=== PATIENT | male | born 1955 | race African-American/Black ===

== ENCOUNTER 2020-11-16 11:26 | Inpatient (IN) | payer OTHER ==
[2020-11-16 12:16] VITALS: BMI 22.1
[2020-11-16] MEDS ORDERED: MAG HYDROX/AL HYDROX/SIMETH 30 ML UNIT-DOSE CUP PO PRN (13:16)
[2020-11-16] MEDS ORDERED: ONDANSETRON *ODT* 4 MG TABLET SL PRN (13:16)
[2020-11-16] MEDS ORDERED: cloNIDine HCL 0.1 MG TABLET PO PRN (13:16)
[2020-11-16] MEDS ORDERED: ACETAMINOPHEN 325 MG TABLET (FP) PO PRN ×2 (13:16)
[2020-11-16] MEDS ORDERED: MAGNESIUM CITRATE 300 ML BOTTLE PO PRN (13:16)
[2020-11-16] MEDS ORDERED: MENTHOL/PHENOL 1 EACH UD MM PRN (13:16)
[2020-11-16] MEDS ORDERED: IBUPROFEN 400 MG TABLET (FP) PO PRN (13:16)
[2020-11-16] MEDS ORDERED: BISMUTH SUBSALICYLATE 524 MG/30 ML PO PRN (13:16)
[2020-11-16] MEDS ORDERED: clonazePAM 0.5 MG ODT TABLETS SL PRN (13:16)
[2020-11-16] MEDS ORDERED: MAGNESIUM HYDROX 2400MG/30ML ORAL SUSPENSION 30 ML CUP PO PRN (13:16)
[2020-11-16] MEDS ORDERED: methaDONE HCL 10 MG TABLET (FOR DETOX USE ONLY) PO ONE (13:30)
[2020-11-16] MEDS: PRENATAL VITAMINS W/ FOLIC ACID TABLET (FP) PO SCH (14:34)
[2020-11-16] MEDS: NICOTINE 7 MG/24 HOURS TOPICAL PATCH TD SCH (14:34)
[2020-11-16] MEDS: NICOTINE 10 MG CARTRIDGE (INHALER) IH PRN (14:34)
[2020-11-16] MEDS: hydrOXYzine PAMOATE 25 MG CAPSULE (FP) PO SCH ×3 (15:33→22:29)
[2020-11-16 16:03] LABS: HEMOGLOBIN 14.1 GM/dL (11.7-16.9); MCH 32.6 pg (25.7-33.7); MCHC 34.5 g/dl (32.0-35.9); MEAN CELL VOLUME 94.5 fl (80-96); MEAN PLT VOLUME 8.5 fl (7.5-11.1); PLATELET COUNT 260 10^3/uL (134-434); RBC 4.34 M/mm3 (4.00-5.60); RDW 13.3 % (11.9-15.9); WHITE BLOOD COUNT 4.7 K/mm3 (4.0-10.0)
[2020-11-16 16:08] LABS: CALCIUM 9.8 mg/dL (8.5-10.1)
[2020-11-16 16:09] LABS: ALBUMIN 4.8 g/dl (3.4-5.0); BLOOD UREA NITROGEN 26.6 mg/dL (7-18)
[2020-11-16 16:12] LABS: CREATININE 1.3 mg/dL (0.55-1.3)
[2020-11-16 16:14] LABS: BILIRUBIN,TOTAL 0.5 mg/dL (0.2-1)
[2020-11-16] MEDS: MELATONIN 5 MG TABLETS PO SCH (22:29)
[2020-11-16] MEDS: THIAMINE HCL 100 MG TABLET (FP) PO SCH (22:29)
[2020-11-17] MEDS: hydrOXYzine PAMOATE 25 MG CAPSULE (FP) PO SCH ×5 (06:27→22:32)
[2020-11-17] MEDS ORDERED: methaDONE HCL 10 MG TABLET (FOR DETOX USE ONLY) ONE (08:57)
[2020-11-17] MEDS: PRENATAL VITAMINS W/ FOLIC ACID TABLET (FP) PO SCH (10:14)
[2020-11-17] MEDS: METHOCARBAMOL 500 MG TABLET PO PRN (10:14)
[2020-11-17] MEDS: NICOTINE 7 MG/24 HOURS TOPICAL PATCH TD SCH (10:16)
[2020-11-17] MEDS: FLUTICASONE PROP 0.05% 16 GM NASAL SPRAY NS SCH ×2 (19:25→22:32)
[2020-11-17] MEDS: THIAMINE HCL 100 MG TABLET (FP) PO SCH (22:32)
[2020-11-17] MEDS: MELATONIN 5 MG TABLETS PO SCH (22:32)
[2020-11-18] MEDS: hydrOXYzine PAMOATE 25 MG CAPSULE (FP) PO SCH ×6 (06:31→22:37)
[2020-11-18] MEDS ORDERED: methaDONE HCL 10 MG TABLET (FOR DETOX USE ONLY) PO ONE (10:00)
[2020-11-18] MEDS: PRENATAL VITAMINS W/ FOLIC ACID TABLET (FP) PO SCH (10:09)
[2020-11-18] MEDS: METHOCARBAMOL 500 MG TABLET PO PRN ×2 (10:09→22:38)
[2020-11-18] MEDS: NICOTINE 7 MG/24 HOURS TOPICAL PATCH TD SCH (10:10)
[2020-11-18] MEDS: FLUTICASONE PROP 0.05% 16 GM NASAL SPRAY NS SCH ×2 (10:11→22:37)
[2020-11-18] MEDS: NICOTINE 10 MG CARTRIDGE (INHALER) IH PRN (21:13)
[2020-11-18] MEDS: THIAMINE HCL 100 MG TABLET (FP) PO SCH (22:36)
[2020-11-18] MEDS: MELATONIN 5 MG TABLETS PO SCH (22:37)
[2020-11-19] MEDS: hydrOXYzine PAMOATE 25 MG CAPSULE (FP) PO SCH ×5 (05:38→22:29)
[2020-11-19] MEDS ORDERED: methaDONE HCL 10 MG TABLET (FOR DETOX USE ONLY) ONE (09:19)
[2020-11-19] MEDS: PRENATAL VITAMINS W/ FOLIC ACID TABLET (FP) PO SCH (10:15)
[2020-11-19] MEDS: METHOCARBAMOL 500 MG TABLET PO PRN ×2 (10:15→22:32)
[2020-11-19] MEDS: FLUTICASONE PROP 0.05% 16 GM NASAL SPRAY NS SCH ×2 (10:17→22:28)
[2020-11-19] MEDS: NICOTINE 7 MG/24 HOURS TOPICAL PATCH TD SCH (10:17)
[2020-11-19] MEDS: MELATONIN 5 MG TABLETS PO SCH (22:28)
[2020-11-19] MEDS: THIAMINE HCL 100 MG TABLET (FP) PO SCH (22:29)
[2020-11-20] MEDS: hydrOXYzine PAMOATE 25 MG CAPSULE (FP) PO SCH ×2 (06:07→09:36)
[2020-11-20 09:15] VITALS: BP 97/72; PULSE 108; TEMP 98.1
[2020-11-20] MEDS: FLUTICASONE PROP 0.05% 16 GM NASAL SPRAY NS SCH (09:37)
[2020-11-20] MEDS: PRENATAL VITAMINS W/ FOLIC ACID TABLET (FP) PO SCH (09:37)
[2020-11-20] MEDS: NICOTINE 7 MG/24 HOURS TOPICAL PATCH TD SCH (09:37)
[2020-11-20] MEDS ORDERED: methaDONE HCL 10 MG TABLET (FOR DETOX USE ONLY) PO ONE (10:00)
[2020-11-20] MEDS ORDERED: PENICILLIN G BENZATHINE 2,400,000 UNIT/4 ML PFS IM ONE (11:15)
== END 2020-11-20 12:36 | disposition home or self-care (01) | DRG 897 ==
LOC: YASAS 11:26 → Y6N 13:03
PROVIDERS: ADMIT Allergy & Immunology; ATTEND Allergy & Immunology
PROC: HZ2ZZZZ Detoxification Services for Substance Abuse Treatment (ICD-10-PCS; principal; 2020-11-16)
DX: F11.23 Opioid dependence with withdrawal (principal); F14.20 Cocaine dependence, uncomplicated; F17.210 Nicotine dependence, cigarettes, uncomplicated; A53.0 Latent syphilis, unspecified as early or late; J45.909 Unspecified asthma, uncomplicated
CPT/HCPCS: 36415; 80053; 84520; 85027; 86593; 86780; 93005; 93010; C9803; U0003; U0005